=== PATIENT | female | born 1990 | race American Indian/Alaskan Native ===

== ENCOUNTER 2017-07-04 00:58 | Emergency (ER) | payer SELFPAY ==
[2017-07-04 01:11] VITALS: BP 137/89
[2017-07-04 01:47] LABS: Basophils % (Auto) 0.5 % (0.0-1.8); Eosinophils % (Auto) 0.6 % (0.0-4.3); Hematocrit 38.6 % (30.3-42.9); Hemoglobin 12.8 gm/dl (10.1-14.3); Mean Corpuscular HGB Conc 33 % (30-34); Mean Corpuscular Hemoglobin 30 pg (28-32); Mean Corpuscular Volume 89 fl (79-97); Platelet Count 381 K/mm3 (140-440); Red Blood Count 4.33 M/mm3 (3.65-5.03); Red Cell Distribution Width 16.5 % (13.2-15.2); White Blood Count 4.8 K/mm3 (4.5-11.0)
[2017-07-04 02:00] LABS: Alanine Aminotransferase 30 units/L (7-56); Albumin 4.6 g/dL (3.9-5); Alkaline Phosphatase 54 units/L (35-129); Anion Gap 20 mmol/L; Blood Urea Nitrogen 7 mg/dL (7-17); Calcium 9.9 mg/dL (8.4-10.2); Carbon Dioxide 27 mmol/L (22-30); Glucose 108 mg/dL (65-100); Lipase 33 units/L (13-60); Potassium 3.6 mmol/L (3.6-5.0); Sodium 140 mmol/L (137-145); Total Protein 9.2 g/dL (6.3-8.2)
[2017-07-04 02:15] LABS: Bilirubin,Urine NEG (Negative); Blood,Urine MOD (Negative); Ketones,Urine TR mg/dL (Negative); Leukocyte Esterase,Urine NEG (Negative); Mucus,Urine 3+ /HPF; Nitrite,Urine POS (Negative)
[2017-07-04 02:16] LABS: RBC,Urine < 1.0 /HPF (0.0-6.0)
[2017-07-04] MEDS ORDERED: TYLENOL PO ONE (02:42)
[2017-07-04] MEDS ORDERED: TYLENOL ONE (02:47)
== END 2017-07-04 09:00 | disposition left against medical advice (07) ==
LOC: ED 00:58
DX: R10.2 Pelvic and perineal pain (principal); Z53.21 Procedure and treatment not carried out due to patient leaving prior to being seen by health care provider
CPT/HCPCS: 36415; 80053; 81001; 81025; 83690; 85025

== ENCOUNTER 2018-06-03 18:21 | Outpatient (CLI) | payer MEDICAID ==
[2018-06-03] MEDS ORDERED: LACTATED RINGERS 500 ML IV ONE (18:33)
[2018-06-03 19:31] LABS: Amorphous Crystals,Urine Few; Bilirubin,Urine NEG (Negative); Blood,Urine NEG (Negative); Color,Urine Yellow (Yellow); Protein,Urine <15 mg/dL mg/dL (Negative); Urobilinogen,Urine < 2.0 mg/dL (<2.0)
[2018-06-03 20:25] VITALS: BP 112/69
--- NOTE | 2018-06-03 20:27 | History and Physical Report ---
History of Present Illness Chief complaint: Abdominal pain, back pain, vaginal bleeding History of present illness: 28yo 26 6/7 weeks, history of c/s x 2 presents complaining of vaginal bleeding and abdominal pain. She was at work sitting and experienced strong abdominal pain and a strong sensation to have a bowel movement. She reports a moderate amount of vaginal bleeding x 1 filling her underwear. She states her last sexual intercourse was Thursday. She denies any abdominal trauma and states pain, bleeding started while she was sitting at work. She had a csection last year 11/2016. She is currently in triage writhing in pain. She is a patient of [facility] in [place] based out [facility]. Past History Past Surgical History: section Social history: - Obstetrical History : 3 Hx # Term Pregnancies: 2 Number of Living Children: 2 Medications and Allergies Allergies Allergy/AdvReac Type Severity Reaction Status Date / Time No Known Allergies Allergy Verified 09/20/14 18:31 Home Medications Medication Instructions Recorded Confirmed Last Taken Type No Known Home Medications [No 10/02/15 10/02/15 Unknown History Reported Home Medications] - Vital Signs Vital signs: Vital Signs Temp Resp 98.3 F 06/03/18 18:55 06/03/18 18:55 Temp Pulse Resp BP Pulse Ox 98.3 F 06/03/18 18:55 06/03/18 18:55 - Physical Exam Genitourinary (Female): Positive: normal external genitalia Vulva: right: normal Vagina: Positive: discharge (no pooling, no Valsalva, normal white discharge ) - Obstetrical FHR: auscultation normal Cervical Dilatation: 0 station: high Uterine Contraction Frequency (min): irritability Results Abnormal lab results 06/03/18 Range/Units 18:57 Urine pH 8.0 H (5.0-7.0) U Epithel Cells (Auto) 15.0 H (0-13.0) /HPF All other labs normal. Assessment and Plan - Patient Problems (1) 25 weeks gestation of Current Visit: Yes Status: Acute (2) Abdominal pain affecting , antepartum Current Visit: Yes Status: Acute Plan to address problem: Patient describes uterine contractions but only uterine irritability on monitor. Cervix closed No vaginal bleeding on speculum exam G/C cultures GBS done fFN held due to no definitive signs of labor. UA no blood. no UTI (3) Vaginal bleeding affecting early Current Visit: Yes Status: Acute Plan to address problem: US to evaluate for placental location/abruption, DIMITRY.
[2018-06-03] MEDS ORDERED: TYLENOL PO ONE (21:02)
--- NOTE | 2018-06-03 23:20 | Ultrasound Report ---
FINAL REPORT PROCEDURE: US OB LIMITED TECHNIQUE: Real-time limited sonographic examination was performed for evaluation of size, position, heartbeat, fluid volume for each fetus with image documentation (1 or more fetuses). CPT 73036 HISTORY: vaginal bleed, eval placenta for abruption, DIMITRY COMPARISON: No prior studies are available for comparison. FINDINGS: Amniotic fluid index is 11.3 centimeters. Placenta is posterior without previa or abruption. There is incidental placental Singh measuring 3.2 x 0.9 x 3.9 centimeters. heart rate is 145 beats per minute. IMPRESSION: Amniotic fluid index is 11.3 centimeters. Placenta is posterior without previa or abruption.
== END 2018-06-03 21:54 | disposition home or self-care (01) ==
LOC: TRG 18:21
PROVIDERS: ATTEND Obstetrics & Gynecology
DX: O47.02 False labor before 37 completed weeks of gestation, second trimester (principal); Z3A.25 25 weeks gestation of pregnancy
CPT/HCPCS: 76815; 81001; 87116; 87591